=== PATIENT | male | born 2000 | race Caucasian/White ===

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

== ENCOUNTER 2022-10-03 12:41 | Outpatient (REF) | payer OTHER, SELFPAY ==
--- NOTE | ~2022-10-03 | XR_ITS ---
EXAMINATION: XR BILATERAL KNEES CLINICAL INFORMATION: Reason for Exam M25.569 - Pain in unspecified knee COMPARISON: None TECHNIQUE: 1 views of the bilateral knees and 2 views of each knee FINDINGS: RIGHT KNEE: No acute fracture or dislocation. Joint spaces are maintained. No joint effusion. Soft tissues are unremarkable. LEFT KNEE: No acute fracture or dislocation. Joint spaces are maintained. No joint effusion. Soft tissues are unremarkable. XR/XR knee standing BI IMPRESSION: * No acute osseous abnormality.
--- NOTE | ~2022-10-03 | XR_ITS ---
EXAMINATION: XR BILATERAL KNEES CLINICAL INFORMATION: Reason for Exam M25.569 - Pain in unspecified knee COMPARISON: None TECHNIQUE: 1 views of the bilateral knees and 2 views of each knee FINDINGS: RIGHT KNEE: No acute fracture or dislocation. Joint spaces are maintained. No joint effusion. Soft tissues are unremarkable. LEFT KNEE: No acute fracture or dislocation. Joint spaces are maintained. No joint effusion. Soft tissues are unremarkable. XR/XR knee LT 2V IMPRESSION: * No acute osseous abnormality.
--- NOTE | ~2022-10-03 | XR_ITS ---
EXAMINATION: XR BILATERAL KNEES CLINICAL INFORMATION: Reason for Exam M25.569 - Pain in unspecified knee COMPARISON: None TECHNIQUE: 1 views of the bilateral knees and 2 views of each knee FINDINGS: RIGHT KNEE: No acute fracture or dislocation. Joint spaces are maintained. No joint effusion. Soft tissues are unremarkable. LEFT KNEE: No acute fracture or dislocation. Joint spaces are maintained. No joint effusion. Soft tissues are unremarkable. XR/XR knee RT 2V IMPRESSION: * No acute osseous abnormality.
== END 2022-10-03 12:42 | disposition home or self-care (01) ==
LOC: HO.HOSX 12:41
PROVIDERS: Visit Provider Orthopaedic Surgery
DX: M25.562 Pain in left knee (principal); M25.561 Pain in right knee; M76.50 Patellar tendinitis, unspecified knee
CPT/HCPCS: 73560; 73565

== ENCOUNTER 2022-11-25 11:43 | Outpatient (REF) | payer OTHER, SELFPAY ==
--- NOTE | ~2022-11-25 | MR_ITS ---
EXAMINATION: MR KNEE WITHOUT CONTRAST, LEFT CLINICAL INFORMATION: Patellar tendinitis. COMPARISON: X-ray 10/03/2022. TECHNIQUE: MRI of the knee without contrast was performed using routine sequences on a high-field scanner. FINDINGS: MENISCI: Medial Meniscus: Intact. Lateral Meniscus: Intact. LIGAMENTS: Cruciate: Intact. Collateral: Intact. EXTENSOR MECHANISM: Minimal distal quadriceps tendinosis. No measurable tear or tendon retraction. Patellar tendon appears intact. No patella rola. Normal patellofemoral alignment. No significant Hoffa's fat pad edema to suggest definite fat impingement. TT-TG distance is within normal limits. Minimal edema and trace fluid along the deep surface of the distal patellar tendon, which could represent minimal deep infrapatellar bursitis. Minimal edema in the tibial tubercle at the patellar insertion. ARTICULAR CARTILAGE/BONE: Patellofemoral Compartment: No significant cartilage loss. Medial Compartment: No significant cartilage loss. Lateral Compartment: No significant cartilage loss. No fracture. No suspicious marrow signal changes. JOINT FLUID AND BURSAE: Small joint fluid. Trace Joyce's cyst. Popliteus muscle and tendon are intact. MR/MR knee LT wo con IMPRESSION: 1. Minimal distal quadriceps tendinosis. No measurable tendon tear or retraction. 2. Minimal edema and trace fluid along the deep surface of the distal patellar tendon, could reflect minimal deep infrapatellar bursitis. There is mild edema in the tibial tubercle at the patellar insertion site. This could reflect reactive edema or bone bruise. 3. Menisci appear intact without discrete tear. 4. Trace Joyce's cyst. Small joint fluid.
--- NOTE | ~2022-11-25 | MR_ITS ---
EXAMINATION: MR KNEE WITHOUT CONTRAST, RIGHT CLINICAL INFORMATION: Right knee pain with jumping. Pain and swelling. Patellar tendinitis. COMPARISON: Right knee radiographs dated 10/03/2022. TECHNIQUE: MRI of the knee without contrast was performed using routine sequences on a high-field scanner. FINDINGS: MENISCI: Medial Meniscus: Intact. Lateral Meniscus: Intact. LIGAMENTS: Cruciate: Intact. Collateral: Intact. EXTENSOR MECHANISM: Minimal distal quadriceps tendinosis. No measurable tear. Intact patellar tendon appear. Normal patellofemoral alignment. No patella rola. TT-TG distance within normal limits. Minimal edema and trace fluid along the undersurface of the patellar insertion which could indicate minimal deep infrapatellar bursitis. ARTICULAR CARTILAGE/BONE: Patellofemoral Compartment: Intact articular cartilage. Medial Compartment: Intact articular cartilage. Lateral Compartment: Intact articular cartilage. JOINT FLUID AND BURSAE: Trace Joyce's cyst. MR/MR knee RT wo con IMPRESSION: 1. Minimal distal quadriceps tendinosis without a measurable tendon defect. Normal patellofemoral alignment. 2. Minimal edema and trace fluid along the undersurface of the patellar insertion which could indicate minimal deep infrapatellar bursitis. 3. Trace Joyce's cyst. 4. No acute meniscal or ligamentous injury.
== END 2022-11-25 11:44 | disposition home or self-care (01) ==
LOC: HO.MRI 11:43
PROVIDERS: Visit Provider Orthopaedic Surgery
DX: M76.51 Patellar tendinitis, right knee (principal); M76.52 Patellar tendinitis, left knee
CPT/HCPCS: 73721

== ENCOUNTER 2022-11-27 11:00 | Outpatient (RCR) | payer OTHER, SELFPAY ==
--- NOTE | 2022-11-25 16:06 | MHC.PT.EP ---
[facility] [place] Office [place] Office [place] Office [address] Mirela Pop [address] [phone] F: [phone] F: [phone] F: [phone] F: [phone] Physical Therapy Plan of Care Date of Evaluation: Date of Surgery: Diagnosis: PATELLOFEMORAL TENDINITIS, RIGHT KNEE AND LEFT KNEE Assessment: 22 YO MALE REF TO PT WITH OTILIA PATELLAR TENDONITIS/ JUMPER'S KNEE, EXACERBATED IN MAY 2022 AFTER PLAYING BASKETBALL- TH EPt IS A [employer] STUDENT AND WILL BE RETURNING TO SCHOOL NEXT WEEK- HE ENJOYS PLAYING INTRAMURAL SPORTS AND EXERCISING- HE STATED LAST YEAR HE SPRAINED BILAT ANKLES. OBJECTIVE FINDINGS: DECR HIP/ CALF FLEXIB, (+) LUMBOPELVIC/ GLUTE/QUAD STRENGTH DEFICITS, (+) PRONATION, INSTABILOITY W SLS BAREFOOT, AND PAIN , STABBING AT TIMES IN BILAT INFRAPATELLAR FAT PAD AND PATELLAR TENDON REGION. FUNCTIONALLY, THE Pt HAS DIFFIC W SQUATTING, STAIR NAVIGATION, EXER AT THE GYM, RUNNING, PLAYING SPORTS-ESPEC BASKETBALL, AND PROLONGED STANDING. HE WOULD BENEFIT FROM PT TO REDUCE PATELLAR IRRIT/ REDUCE SOFT TISSUE TENSION, IMPROVE THE LEs MECHANICAL CHAIN, AND ENHANCE THE EFFICIENCY OF HIS JUMPING/LANDING/SQUATTING MECH TO REDUCE RISK OF EXACERBATION. Frequency and Duration: The patient will be seen 2 x WK 2 WKS Short Term Goals: *INITIATE HEP TO ADDRESS HS/ PSOAS/CALF/ROTATOR FLEXIBILITY AND ACTIVATE GLUTES/QUADS *IMPROVE FUNCTIONAL SQUAT/ PARTIAL LUNGE MECHANICS *ASSESS JUMPING/ LANDING/ FOOTWEAR *DECR Pt'S BILAT ANTEROINF KNEE PAIN [employer] Goals: *INDEP W HEP AND SELF-SX MGMT TECHN *THE Pt DEMON IMPROVED FLEXIB IN OTILIA HS/ CALVES/ PSOAS *THE Pt DEMON IMPROVED GLUTE ACTIV AND LEs STABILITY/ DYNAMIC BALANCE *THE Pt REPORT ABLE TO RESUME REG ADLs AND SPORTS EVIDENT WITH IMPROVED (49/80) Treatment Plan: Modalities to reduce pain, spasms and effusion. Manual therapy to restore motion and function. Therapeutic exercise to improve strength and flexibility. Neuromuscular re-education for posture and balance. Therapeutic activities to return to functional activities of daily living. Electronically signed by: IRIS ALBARADO PT Please sign and return to therapist. Thank you for your referral.
--- NOTE | 2022-12-03 07:27 | MHC.PT.DC ---
[facility] [place] Office [place] Office [place] Office [address] Mirela Pop [address] [phone] F: [phone] F: [phone] F: [phone] F: [phone] Physical Therapy Discharge Report Diagnosis: PATELLOFEMORAL TENDINITIS, RIGHT KNEE AND LEFT KNEE Date of Surgery: Date of Evaluation: 11/25/22 Date of Discharge: 12/03/22 Treatments to Date: 2 Cancellations to Date: 0 No Shows to Date: 0 Discharge Status: Improved Function Independent with HEP Discharge Summary: MOHIT BENEFITTED FROM [facility] TO REDUCE HABITUAL HIP HIKE W QL AND INCR ACTIV OF GLUTES- HE WAS CHALLENGED WITH QUAD WORK-> ESPEC 1/3 SQUATS , TO REDUCE COMPENSATION W TRUNK AND ANT TIBIAL TRANSLATION AND ENCOURAGE HIP HINGE; WE REVIEWED JUMP AND LANDING TECHN AND HE WAS ABLE TO PARTIALLY SOFTEN HIS LANDING. WITH THE PROVIDED/ REVIEWED EX, JUMPING/LANDING REVIEW, AND STRENGTHENING EXER, THE STRESS ON HIS DISTAL QUAD AND PATELLAR TENDONS, SHOULD BE SIGNIF REDUCED- I SUGGESTED HE PURSUE PT CONSULT WHILE AT [employer] IF KNEE SXS PERSIST, TO ADVANCE HIM W AGILITY/ PLYOMETRICS/ JUMP WORK. MOHIT COMPREHENDS HIS HEP STRATEGY AND DID NOT HAVE ANY FURTHER QUESTIONS AT THIS TIME- HE IS D/C'D FROM PT AT THIS TIME HE RETURNED TO [employer] IN [place]. Electronically signed by: IRIS ALBARADO,PT Please sign and return to therapist. Thank you for your referral.
== END 2022-12-03 07:28 | disposition home or self-care (01) ==
LOC: HO.PT 11:00
PROVIDERS: Visit Provider Physician Assistant
DX: M22.2X1 Patellofemoral disorders, right knee (principal); M22.2X2 Patellofemoral disorders, left knee; M76.50 Patellar tendinitis, unspecified knee
CPT/HCPCS: 97110; 97112; 97162

== ENCOUNTER 2023-01-23 14:36 | Outpatient (REF) | payer OTHER, SELFPAY ==
--- NOTE | ~2023-01-23 | XR_ITS ---
EXAMINATION: XR ANKLE, LEFT CLINICAL INFORMATION: Pain in left ankle and joints of foot. COMPARISON: None available. TECHNIQUE: AP, lateral, and mortise views of the left ankle. FINDINGS: Soft tissue swelling with ankle joint effusion. Bone mineralization is normal. Alignment is preserved. No displaced fracture. XR/XR ankle LT min 3V IMPRESSION: Soft tissue swelling with ankle joint effusion. No displaced fracture. Recommend follow-up imaging in 10-14 days if fracture is suspected.
== END 2023-01-23 14:37 | disposition home or self-care (01) ==
LOC: HO.HOSX 14:36
PROVIDERS: Visit Provider Physician Assistant
DX: S93.492A Sprain of other ligament of left ankle, initial encounter (principal)
CPT/HCPCS: 73610

== ENCOUNTER 2023-01-23 14:36 | Outpatient (AMB) | payer OTHER, SELFPAY ==
--- NOTE | 2023-01-23 14:43 | A.OFFVIS_ITS ---
Intake Vital Signs 01/23/23 15:05 Height 5 ft 11 in Weight 165 lb BMI 23.0 Intake Visit Reasons: DIRECTOR PART, Ankle Injury Intake Note: Jomar a 22 year old male presents today as a new patient for an evaluation of left ankle, DOI 01/22/23. Patient reports while he was playing basketball he went up for the ball, he landed awkwardly with his full body weight. Currently pain is fine at rest howver pain with any weight bear. Denies numbness or tingling. Allergies seasonal Allergy (Unknown, Uncoded 01/23/23 15:08) Unknown HPI DIRECTOR PART, Ankle Injury HPI Details 22-year-old male who presents to the off ice today for evaluation of left ankle injury he sustained while playing basketball when he jumped up and landed awkwardly with his full body weight. DOI 01/22/23. He currently states he has pain in his ankle which is alleviated with resting. He denies any numbness or tingling. FOR[facility]LY [facility], [facility] Social History (Updated 01/23/23 @ 15:07 by Sharifa Swift Casandra) Patient Tobacco Use Status: Never used Tobacco Current occupational status: student Review of Systems Const All systems reviewed & are unremarkable except as noted in HPI and below Physical Exam Vital Signs: BMI result Body Mass Index 23.0 Const General: cooperative, healthy appearing, comfortable, no acute distress, well developed and alert Orientation/consciousness: patient oriented x3 HEENT Head: Yes normal to inspection, Yes normocephalic and Yes atraumatic Eyes General: appearance normal, both eyes and all related structures Resp Effort & Inspection: normal respiratory effort and able to speak in complete sentences Cardio Rate: regular rate Peripheral pulses: Peripheral pulses 2+ throughout GI Palpation (GI): Soft to palpation Skin Lesions: no lesions Rashes: no rashes Neuro General: patient oriented x3 Extrem Other: Left ankle: Normal to inspection with diffuse swelling over the medial and lateral malleolus with tenderness along the soft tissues. No discomfort along the posterior aspect of the ankle, no deformity along the Achilles tendon, negative Maynard?s. No pain along the syndesmosis or anterior tibia. No laxity, NVI. Results Reviewed Results Reviewed: Xrays were obtained in the office today and personally reviewed by me of the left ankle which are negative for acute fractures or dislocations. Ankle mortinse intact. Assessment & Plan Assessment & Plan (1) Left ankle sprain: Code(s): S93.402A - Sprain of unspecified ligament of left ankle, initial encounter Qualifiers: Encounter type: initial encounter Involved ligament of ankle: anterior talofibular ligament Qualified Code(s): S93.492A - Sprain of other ligament of left ankle, initial encounter Plan He was placed in a tall boot weight bearing as tolerated which he will wear for 2 weeks. I also provided him with a lace up ankle brace which he can transition to and he was also given an order for physical therapy and home exercises. If symptoms persist or he develops supervisor intermediates pain or concerns, patient will contact the office, otherwise follow-up as needed. Orders: Orders PT Evaluation and Treatment 01/23/23 S93.402A - Sprain of unspecified ligament of left ankle, initial encounter XR ankle LT min 3V 01/23/23 M25.572 - Pain in left ankle and joints of left foot Patient Instructions: Scribed for Stanley Calderon PA-C, by Kris Deng biomedical engineer, on 01/23/2023 at 3:00 PM Stanley SILVA PA-C, have personally reviewed and agree with the information entered by the scribe. Coding Level of Care Code Est Pt Level 3 (67659) Diagnoses Sprain of anterior talofibular ligament of left ankle, initial encounter S93.492A Encounter type: initial encounter Involved ligament of ankle: anterior talofibular ligament
[2023-01-23 15:05] VITALS: BMI 23.0
== END 2023-01-23 15:31 | disposition home or self-care (01) ==
PROVIDERS: Visit Provider Physician Assistant
DX: S93.492A Sprain of other ligament of left ankle, initial encounter (principal)
CPT/HCPCS: 99213